=== PATIENT | female | born 1980 | race Caucasian/White ===

== ENCOUNTER 2021-07-01 00:19 | Emergency (ER) | payer SELFPAY ==
[2021-07-01 00:38] LABS: BILIRUBIN,URINE NEGATIVE (NEGATIVE); GLUCOSE, URINE (UA) NEGATIVE (NEGATIVE); KETONES,URINE (UA) NEGATIVE (NEGATIVE); LEUKOCYTE ESTERASE, URINE NEGATIVE (NEGATIVE); NITRITE,URINE NEGATIVE (NEGATIVE); OCCULT BLOOD,URINE NEGATIVE (NEGATIVE); PH,URINE 5.5 PH (5.0-7.5); PROTEIN,URINE NEGATIVE (NEGATIVE); UROBILINOGEN,URINE 0.2 (NORMAL) E.U./dL (NORMAL)
[2021-07-01 00:42] LABS: CLARITY,URINE CLEAR (CLEAR); HCG UR QUAL NEGATIVE
[2021-07-01] MEDS ORDERED: SODIUM CHLORIDE 0.9% 1,000 ML IV STA (00:52)
[2021-07-01] MEDS ORDERED: ONDANSETRON 4 MG/2 ML VIAL IVP STA (00:52)
[2021-07-01] MEDS ORDERED: MORPHINE 2 MG/ML CARPUJECT IVP STA (00:52)
--- NOTE | 2021-07-01 00:55 | ED Physician Documentation ---
History of Present Illness - Stated complaint Stated Complaint: ABD PX,VOMITING - Chief complaint Chief Complaint: Abd Pain - History obtained from History obtained from: Patient - Additonal information Additional information: 41yF with pmh anemia, pcos on metformin, PSH laparoscopic ovarian cyst drainage, no other abd surgeries, p/w abdominal pain X 24 hours, increasing in severity, located in RLQ, nonradiating, aching, moderate severity, a/w nbnb n/v X 6. denies fever, cough, soa, cp, diarrhea, urinary sx. patient was in [place] when the pain started visiting family and went to urgent care there about 20 hours ago, was told she had increased wbc count and should go to ED for imaging studies, but instead she got on her flight back to [place]. [facility] midJanuary. Review of Systems Ten Systems: 10 systems reviewed and negative Constitutional: denies: Fever, Chills Cardiac: denies: Chest pain / pressure Respiratory: denies: Dyspnea, Cough GI: reports: Abdominal Pain, Nausea, Vomiting. denies: Constipation, Diarrhea, Bloody / black stool : denies: Dysuria, Frequency, Hematuria Musculoskeletal: denies: Back pain PD PAST MEDICAL HISTORY - Past Medical History Past Medical History: Yes Cardiovascular: None Respiratory: None Neuro: None Endocrine/Autoimmune: None GI: None CLINICAL ANALYST: Other : None HEENT: None Psych: None Musculoskeletal: None Derm: None Other Past Medical History: PCOS... - Past Surgical History Past Surgical History: Yes General: Other - Present Medications Home Medications: Ambulatory Orders Medication Instructions Recorded Confirmed Ondansetron Odt [Zofran Odt] 4 mg TL Q6H PRN #10 tablet 07/01/21 metFORMIN [Glucophage] 500 mg PO BIDWM 07/01/21 07/01/21 - Allergies Allergies/Adverse Reactions: Allergies Allergy/AdvReac Type Severity Reaction Status Date / Time NSAIDS (Non-Steroidal AdvReac Unknown Verified 07/01/21 00:36 Anti-Inflamma Penicillins AdvReac Unknown Verified 07/01/21 00:36 - Social History Does the pt smoke?: No Smoking Status: Never smoker Does the pt drink ETOH?: Yes Does the pt have substance abuse?: No - Immunizations Immunizations are current?: Yes - POLST Patient has POLST: No PD ED PE NORMAL - Vitals Vital signs reviewed: Yes - General General: Alert and oriented X 3, Well developed/nourished, Other (uncomfortable appearing) - HEENT HEENT: Atraumatic, PERRL, EOMI - Neck Neck: Supple, no meningeal sign - Cardiac Cardiac: RRR - Respiratory Respiratory: No respiratory distress, Clear bilaterally - Abdomen Abdomen: Other (RLQ ttp. otherwise ntnd) - Back Back: No CVA TTP - Derm Derm: Normal color, Warm and dry - Extremities Extremities: No deformity, No edema - Neuro Neuro: No motor deficit, No sensory deficit, Normal speech - Psych Psych: Normal mood, Normal affect Results - Vitals Vitals: Vital Signs - 24 hr 07/01/21 07/01/21 07/01/21 00:32 01:25 01:50 Temperature 36.3 C L Heart Rate 100 95 90 Respiratory 16 16 16 Rate Blood Pressure 175/109 H 147/99 H O2 Saturation 99 95 96 07/01/21 07/01/21 07/01/21 02:12 02:16 03:09 Temperature Heart Rate 94 94 Respiratory 18 17 16 Rate Blood Pressure 169/108 H O2 Saturation 100 99 Oxygen O2 Source Room air - Labs Labs: Laboratory Tests 07/01/21 07/01/21 07/01/21 00:25 01:12 01:12 WBC 6.0 RBC 3.88 L Hgb 9.9 L Hct 31.3 L MCV 80.7 L MCH 25.5 L MCHC 31.6 L RDW 17.2 H Plt Count 331 MPV 9.2 Neut # (Auto) 3.3 Lymph # (Auto) 1.9 [place] # (Auto) 0.6 Eos # (Auto) 0.1 Baso # (Auto) 0.1 Absolute Nucleated RBC 0.00 Nucleated RBC % 0.0 Sodium 135 Potassium 3.6 Chloride 99 L Carbon Dioxide 24 Anion Gap 12.0 BUN 9 Creatinine 0.9 Estimated GFR (MDRD) 70 L Glucose 193 H Calcium 9.0 Total Bilirubin 0.4 AST 25 ALT 29 Alkaline Phosphatase 65 Total Protein 6.9 Albumin 3.9 Globulin 3.0 Albumin/Globulin Ratio 1.3 Lipase 33 Urine Color YELLOW Urine Clarity CLEAR Urine pH 5.5 Ur Specific [place] <=1.005 Urine Protein NEGATIVE Urine Glucose (UA) NEGATIVE Urine Ketones NEGATIVE Urine Occult Blood NEGATIVE Urine Nitrite NEGATIVE Urine Bilirubin NEGATIVE Urine Urobilinogen 0.2 (NORMAL) Ur Leukocyte Esterase NEGATIVE Ur Microscopic Review NOT INDICATED Urine Culture Comments NOT INDICATED Urine HCG, Qual NEGATIVE PD MEDICAL DECISION MAKING - ED course ED course: 41yF p/w 24 h of RLQ abdominal pain concerning for appendicitis vs ovarian torsion. patient states she is done having kids, has no further intentions of getting . will pursue CT, labs, symptomatic care. Pain is now well controlled. d/w patient that she is anemic on labwork and she states she was aware of this. discussed with her that we have not completely ruled out ovarian torsion and could call in an chemical treatment plant technician to evaluate further, but she is feeling better and would rather f/u outpatient. 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 strict return precautions given. she will take tylenol/use heating pads at home. Departure - Departure Disposition: 01 Home, Self Care Clinical Impression: Anemia, Abdominal pain, Vomiting Condition: Stable Instructions: Abdominal Pain, ED Nausea Vomiting Prescriptions: Ondansetron Odt [Zofran Odt] 4 mg TL Q6H PRN #10 tablet PRN Reason: Nausea / Vomiting Comments: You were seen in the ED for abdominal pain, nausea and vomiting. Your labwork and CT was normal except for anemia and a small diverticulum (outpouching) of your small intestines. Please follow up with [employer] school home economics teacher and your primary doctor and return to the ED for any new or worsening symptoms or other concerns.
[2021-07-01 01:27] LABS: BASOPHILS # (AUTO) 0.1 10^3/uL (0.0-0.1); BASOPHILS % (AUTO) 0.8 %; EOSINOPHILS # (AUTO) 0.1 10^3/uL (0.0-0.7); EOSINOPHILS % (AUTO) 2.2 %; HCT - HEMATOCRIT 31.3 % (37.0-47.0); HGB - HEMOGLOBIN 9.9 g/dL (12.0-16.0); LYMPHOCYTES # (AUTO) 1.9 10^3/uL (1.5-3.5); LYMPHOCYTES % (AUTO) 30.8 %; MEAN CORPUSCULAR HEMOGLOBIN 25.5 pg (27.0-31.0); MEAN CORPUSCULAR HGB CONC 31.6 g/dL (32.0-36.0); MEAN CORPUSCULAR VOLUME 80.7 fL (81.0-99.0); MEAN PLATELET VOLUME 9.2 fL (7.9-10.8); MONOCYTES # (AUTO) 0.6 10^3/uL (0.0-1.0); MONOCYTES % (AUTO) 10.6 %; NEUTROPHILS # (AUTO) 3.3 10^3/uL (1.5-6.6); NEUTROPHILS % (AUTO) 55.4 %; PLT - PLATELET COUNT 331 10^3/uL (130-450); RED BLOOD COUNT 3.88 10^6/uL (4.20-5.40); RED CELL DISTRIBUTION WIDTH 17.2 % (12.0-15.0)
[2021-07-01 01:38] LABS: ALBUMIN 3.9 g/dL (3.2-5.5); ALBUMIN/GLOBULIN RATIO 1.3 (1.0-2.2); BILIRUBIN,TOTAL 0.4 mg/dL (0.2-1.0); CREATININE 0.9 mg/dL (0.4-1.0); POTASSIUM 3.6 mmol/L (3.5-5.0); TOTAL PROTEIN 6.9 g/dL (6.7-8.2)
[2021-07-01] MEDS ORDERED: HYDROmorphone 1 MG/ML CARPUJECT IVP STA ×2 (01:49→02:57)
[2021-07-01] MEDS ORDERED: IOVERSOL 320 100 ML VIAL IVP ONE ×2 (02:00→02:19)
[2021-07-01] MEDS ORDERED: diphenhydrAMINE INJ 50 MG/ML VIAL IVP STA (02:13)
[2021-07-01 03:21] VITALS: BP 169/99
--- NOTE | 2021-07-01 09:13 | CT Report ---
PROCEDURE: Abdomen/Pelvis W INDICATIONS: RLQ pain CONTRAST: IV CONTRAST: Optiray 320 ml: 100 PO CONTRAST: *NO PO CONTRAST TECHNIQUE: After the administration of oral and intravenous contrast, 5 mm thick sections acquired from the diap hragms to the symphysis. 5 mm thick coronal and sagittal reformats were acquired. For radiation dos e reduction, the following was used: automated exposure control, adjustment of mA and/or kV accordin g to patient size. COMPARISON: None. FINDINGS: Image quality: Excellent. ABDOMEN: Lung bases: Bibasilar dependent atelectasis. Heart size is normal. No pericardial effusion. Small hiatal hernia. Solid organs: Liver is normal in size and enhancement. Mild hepatic steatosis. Gallbladder is anamaria l. Biliary system is non-dilated. Pancreas enhances normally. No adrenal hematomas. Both kidneys enhance normally. No renal stones or hydronephrosis. Peritoneum and bowel: Unenhanced bowel loops demonstrate normal wall thickness and caliber. Surgical changes in the right lower quadrant around the cecum is presumably for appendectomy. No free air or free fluid. Nodes and vessels: No retroperitoneal or mesenteric adenopathy. Aorta and inferior vena cava are no rmal in size and enhancement. Miscellaneous: Tiny fat-containing umbilical hernia is noted. PELVIS: Genitourinary: Bladder wall thickness is normal. Miscellaneous: No inguinal hernias or adenopathy. Bones: Pelvic ring and hip joints appear intact. [id number] degenerative changes in lumbar sp ine. IMPRESSION: 1. No acute abnormalities in abdomen or pelvis. 2. Suspect appendectomy. 3. Mild hepatic steatosis. No significant discrepancy with the preliminary report. Reviewed by: Bulmaro Armijo MD on 07/01/2021 9:12 AM PST Approved by: Bulmaro Armijo MD on 07/01/2021 9:12 AM PST Station ID: [id number]
== END 2021-07-01 03:22 | disposition home or self-care (01) ==
LOC: ED 00:19
DX: R10.31 Right lower quadrant pain (principal); D64.9 Anemia, unspecified
CPT/HCPCS: 36415; 74177; 80053; 81003; 81025; 83690; 85025; 96361; 96374; 96375; 96376; 99282; 99285; J1170; J1200; Q9967; 81001; 87086